=== PATIENT | female | born 1975 | race Caucasian/White ===

== ENCOUNTER → 2020-07-27 | Outpatient (CLI) | payer OTHER ==
[~2020-07-27] MED LIST: IBUPROFEN800 MG PO; NAPROSYN500 MG PO; NORCO 5-325 TA1 EACH PO; SINGULAIR10 MG PO; SOMA350 MG PO; ULTRAM50 MG PO
== END ==
LOC: RAD 07:49
DX: K31.89 Other diseases of stomach and duodenum (principal)
CPT/HCPCS: 74220

== ENCOUNTER → 2020-11-05 | Outpatient (CLI) | payer OTHER | LOC: NM 09:00 | DX: R10.13 Epigastric pain (principal) | CPT/HCPCS: 78264; A9541 ==

== ENCOUNTER → 2020-12-05 | Outpatient (CLI) | payer OTHER ==
[2020-12-05 12:22] LABS: HEMOGLOBIN 14.2 gm/dl (12.3-15.3); RED BLOOD COUNT 4.46 M/UL (4.00-5.10); WHITE BLOOD COUNT 4.9 K/UL (4.5-11.0)
== END ==
LOC: LAB 11:05
PROVIDERS: Obstetrics & Gynecology
DX: R10.2 Pelvic and perineal pain (principal)
CPT/HCPCS: 36415; 85027

== ENCOUNTER → 2020-12-07 | Outpatient (CLI) | payer OTHER | LOC: MAMO 11-27 08:00 | DX: Z12.31 Encounter for screening mammogram for malignant neoplasm of breast (principal) | CPT/HCPCS: 77063; 77067 ==

== ENCOUNTER 2021-05-07 10:51 | Emergency (ER) | payer OTHER ==
[2021-05-07 11:30] LABS: RED BLOOD COUNT 4.64 M/UL (4.00-5.10)
[2021-05-07 12:46] LABS: BUN/CREATININE RATIO 19 (0-10)
[2021-05-07] MEDS ORDERED: FLAGYL 250 MG250 MG PO (14:54)
== END 2021-05-07 15:15 | disposition home or self-care (01) ==
LOC: ER1 10:51
PROVIDERS: Emergency Medicine
DX: R18.8 Other ascites (principal); R10.9 Unspecified abdominal pain; K21.9 Gastro-esophageal reflux disease without esophagitis; Z90.710 Acquired absence of both cervix and uterus
CPT/HCPCS: 80053; 81001; 82550; 82553; 83690; 83874; 84484; 85025; 93005; 96374; 96375; 99284; J2270; J2405; J7030; Q9967

== ENCOUNTER 2021-07-15 12:17 | Emergency (ER) | payer OTHER ==
[~2021-07-15 12:17] MED LIST changes: +FLAGYL 250 MG250 MG PO
[2021-07-15 13:03] LABS: HEMOGLOBIN 14.6 gm/dl (12.3-15.3); RED BLOOD COUNT 4.6 M/UL (4.00-5.10); WHITE BLOOD COUNT 6.5 K/UL (4.5-11.0)
[2021-07-15 13:44] LABS: BUN/CREATININE RATIO 16 (0-10)
== END 2021-07-15 14:38 | disposition home or self-care (01) ==
LOC: ER1 12:17
PROVIDERS: Student in an Organized Health Care Education/Training Program
DX: U07.1 COVID-19 (principal); R09.1 Pleurisy; Z88.0 Allergy status to penicillin
CPT/HCPCS: 71045; 80053; 82550; 82553; 83874; 84484; 85025; 93005; 99285

== ENCOUNTER → 2021-11-06 | Outpatient (CLI) | payer OTHER | LOC: RAD 07:31 | DX: R10.11 Right upper quadrant pain (principal) | CPT/HCPCS: 74246 ==

== ENCOUNTER → 2022-01-01 | Outpatient (CLI) | payer OTHER | LOC: MAMO 12-13 08:00 | DX: Z12.31 Encounter for screening mammogram for malignant neoplasm of breast (principal) | CPT/HCPCS: 77063; 77067 ==